=== PATIENT | male | born 1950 | race Caucasian/White ===

== ENCOUNTER 2017-04-14 16:33 | Inpatient (IN) | payer OTHER ==
[~2017-04-14] VITALS: Ht 175.3 cm; Wt 91.7 kg
[~2017-04-14 16:33] MED LIST: ACETAMINOPHEN1 EAC4 PO; AFINITOR10 MG PO; AFINITOR2.5 MG PO; AMLODIPINE BESYL5 MG PO; AMOX TR-K CLV1 EAC4 PO; ASPIR 8181 M1 PO; ASPIRIN81 M2 PO; ATIVAN1 MG PO; ATORVASTATIN CA10 MG PO; AUGMENTIN875 MG PO; BACTRIM,SEPT1 TABLET PO; BLACK CHERRY; BLACK CHERRY EXTRACT PO; BLACK CHERRY PO; BROMELAIN PO; BROMELAINS500 MG PO; CARDIZEM CD120 MG PO; CINNAMON500 MG PO; CIPRO500 MG PO; CO Q-10100 MG PO; EMERGEN C PO; EMERGEN-C; EMERGEN-C PO; FEROSUL325 MG PO; FERROUS SULFAT325 MG PO; FISH OIL 1,0001 EAC7 PO; FISH OIL OMEGA1 EACH PO; FUROSEMIDE20 MG PO; GLUCOPHAGE1000 M1 PO; HYDRALAZINE HCL25 MG PO; HYDROCHLOROTHIA25 MG PO; IRON160 M1 PO; L-GLUTAMINE POWDER PO; LASIX20 MG PO; LASIX40 MG PO; LEVOTHYROXINE88 MCG PO; LEVOXYL88 MCG PO; LISINOPRIL-HCT1 EAC3 PO; LISINOPRIL40 MG PO; LOPERAMIDE2 M1 PO; LOPERAMIDE2 MG PO; LOPRESSOR100 M1 PO; MAG GLYCINATE100 MG PO; MAGNESIUM OXID200 MG PO; MAGNESIUM400 M1 PO; MAGNESIUM400 MG PO; MARINOL5 MG PO; METFORMIN HCL1000 MG PO; METOPROLOL TAR100 MG PO; METOPROLOL TART25 MG PO; NORVASC5 MG PO; OMEGA 3-6-9 CO1 EACH PO; OMEPRAZOLE40 M1 PO; OXYCODONE HCL E10 MG PO; OXYCODONE HCL10 MG PO; OXYCONTIN10 MG PO; PANTOPRAZOLE SO40 MG PO; PERCOCET 5/31 TABLET PO; SENNA8.6 MG PO; SUTENT50 MG PO; SYNTHROID50 MCG PO; TYLENOL EXTRA500 MG PO; TYLENOL PM1 CAPLET PO; VITAMIN B-121000 MCG PO; VITAMIN B-122500 MCG SL; VITAMIN B12-FO1 EACH SL; VITAMIN D-32000 UNI1 PO; VITAMIN D-32000 UNI2 PO; VITAMIN D22000 UNIT PO; VITAMIN D32000 UNI1 PO; XARELTO20 MG PO; ZESTRIL,PRINIVI40 MG PO; ZESTRIL40 MG PO; ZINC30 M1 PO; ZOFRAN4 MG PO; [UNRECOGNIZED DRUG - CODE] PO; [UNRECOGNIZED DRUG - OTHER]; [UNRECOGNIZED DRUG - OTHER] PO; [UNRECOGNIZED DRUG - OTHER] PO
[2017-04-14 17:49] LABS: BASOPHIL (%) 0.5 % (0-1); EOSINOPHIL COUNT 0.2 K/uL (0-0.3); HEMATOCRIT 37.7 % (38.0-50.0); HEMOGLOBIN 11.8 G/DL (12.5-16.6); IMMATURE GRANULOCYTE (%) 0.7 % (0.0-0.7); LYMPHOCYTE (%) 16.5 % (15-42); MCH 29.9 PG (29.0-34.0); MCHC 31.3 G/DL (30.0-36.0); MCV 95.7 FL (86-99); MONOCYTE (%) 9.3 % (3-12); MONOCYTE COUNT 0.6 K/uL (0-0.8); NEUTROPHIL COUNT 4.2 K/uL (1.8-6.4); PLATELET COUNT 168 K/uL (156-360); RBC DIS.WIDTH-CV 14.5 % (11.8-14.6); RBC DIS.WIDTH-SD 50.8 % (39-53); RED BLOOD COUNT 3.94 M/uL (4.00-5.50)
[2017-04-14 18:01] LABS: ALBUMIN 3.6 g/dL (3.2-4.8)
[2017-04-14 18:02] LABS: CHLORIDE 111 mEq/L (99-109); POTASSIUM 5.4 mEq/L (3.7-5.4); SODIUM 138 mEq/L (136-147)
[2017-04-14 18:04] LABS: GLUCOSE 100 mg/dL (70-99); TOTAL PROTEIN 7.1 g/dL (6.4-8.3)
[2017-04-14 18:06] LABS: TOTAL BILIRUBIN 0.2 mg/dL (0.0-1.0)
[2017-04-14 18:08] LABS: ALKALINE PHOSPHATASE 72 IU/L (3-129); CREATININE 1.9 mg/dL (0.6-1.3); GFR ESTIMATE (CALCULATED) 38 mL/min/ (58.99-99999)
[2017-04-14 18:09] LABS: UREA NITROGEN (BUN) 46 mg/dL (9-23)
[2017-04-14 18:10] LABS: AST (GOT) 18 IU/L (2-34)
[2017-04-14 18:11] LABS: ALT (GPT) 17 IU/L (3-49)
[2017-04-14] MEDS ORDERED: SENOKOT S,PE1 TABLET PO (19:32)
[2017-04-14] MEDS ORDERED: ONDANSETRON HCL8 MG PO (19:37)
[2017-04-14] MEDS ORDERED: NAC600 MG PO (19:40)
[2017-04-14] MEDS ORDERED: L-CARNITINE500 M1 PO (19:44)
[2017-04-14] MEDS ORDERED: INLYTA1 MG PO (19:45)
[2017-04-14] MEDS ORDERED: IMODIUM A-D2 M2 PO (19:47)
[2017-04-14] MEDS ORDERED: [UNRECOGNIZED DRUG - OTHER] PO (19:52)
[2017-04-14] MEDS ORDERED: COENZYME Q-10200 MG PO (19:55)
[2017-04-14] MEDS ORDERED: CELEXA10 MG PO (19:55)
[2017-04-14] MEDS ORDERED: CLONIDINE HCL0.2 MG PO (19:56)
[2017-04-14] MEDS ORDERED: [UNRECOGNIZED DRUG - OTHER] PO (19:58)
[2017-04-14 22:39] VITALS: BP 114/66
[2017-04-15 00:33] VITALS: BP 91/50
[2017-04-15 06:45] VITALS: BP 124/71
[2017-04-15 11:20] VITALS: BP 124/72
[2017-04-15 15:17] VITALS: BP 146/74
[2017-04-15 19:03] VITALS: BP 159/77
[2017-04-15 20:39] LABS: APPEARANCE CLEAR ((CLEAR)); BILIRUBIN NEGATIVE; BLOOD NEGATIVE; COLOR STRAW ((YELLOW)); GLUCOSE (STRIP) NEGATIVE; KETONES NEGATIVE; LEUKOCYTES NEGATIVE; NITRITE NEGATIVE; PROTEIN (STRIP) 30; SPECIFIC GRAVITY 1.005 (1.000-1.030); UROBILINOGEN 0.2 MG/DL (0.2-1.0)
[2017-04-15 23:30] VITALS: BP 164/86
[2017-04-16 03:22] VITALS: BP 169/78
[2017-04-16 04:43] LABS: UR CREATININE CONCENTRATION 19.6 MG/DL
[2017-04-16 04:51] LABS: BASOPHIL (%) 0.4 % (0-1); EOSINOPHIL (%) 0.2 % (0-5); HEMATOCRIT 37.3 % (38.0-50.0); HEMOGLOBIN 12.3 G/DL (12.5-16.6); IMMATURE GRANULOCYTE (%) 0.7 % (0.0-0.7); LYMPHOCYTE (%) 6.2 % (15-42); LYMPHOCYTE COUNT 0.6 K/uL (1.0-2.8); MCH 30.4 PG (29.0-34.0); MCV 92.3 FL (86-99); MONOCYTE (%) 7.6 % (3-12); MONOCYTE COUNT 0.7 K/uL (0-0.8); NEUTROPHIL (%) 84.9 % (45-76); NEUTROPHIL COUNT 8.2 K/uL (1.8-6.4); PLATELET COUNT 177 K/uL (156-360); RBC DIS.WIDTH-CV 14.4 % (11.8-14.6); RBC DIS.WIDTH-SD 48.7 % (39-53); RED BLOOD COUNT 4.04 M/uL (4.00-5.50); WHITE BLOOD COUNT 9.7 K/uL (4.1-10.2)
[2017-04-16 04:57] LABS: INTER. NORMALIZED RATIO 1.1
[2017-04-16 05:00] LABS: PTT 29.4 SEC (25-37)
[2017-04-16 05:17] LABS: CHLORIDE 106 MEQ/L (99-109); GFR ESTIMATE (CALCULATED) > 59 mL/min/ (58.99-99999); MAGNESIUM 1.5 mg/dl (1.3-2.7); PHOSPHORUS 1.9 mg/dL (2.5-4.9); POTASSIUM 4.8 MEQ/L (3.7-5.4); SODIUM 136 MEQ/L (136-147); UREA NITROGEN (BUN) 30 mg/dL (9-23)
[2017-04-16 05:22] LABS: ALBUMIN 3.5 G/DL (3.2-4.8); ALKALINE PHOSPHATASE 75 IU/L (3-129); ALT (GPT) 10 IU/L (3-49); AST (GOT) 16 IU/L (2-34); CHLORIDE 108 MEQ/L (99-109); GFR ESTIMATE (CALCULATED) > 59 mL/min/ (58.99-99999); PHOSPHORUS 1.7 mg/dL (2.5-4.9); POTASSIUM 4.7 MEQ/L (3.7-5.4); SODIUM 140 MEQ/L (136-147); TOTAL BILIRUBIN 0.5 MG/DL (0.0-1.0); UREA NITROGEN (BUN) 31 mg/dL (9-23)
[2017-04-16 05:23] LABS: CREATININE 1.3 MG/DL (0.6-1.3); GLUCOSE 197 mg/dL (70-99)
[2017-04-16 05:23] LABS: CREATININE 1.3 MG/DL (0.6-1.3); GLUCOSE 198 mg/dL (70-99)
[2017-04-16 06:02] VITALS: BP 146/79
[2017-04-16 07:10] LABS: AMYLASE 40 IU/L (1-118); LIPASE 5 U/L (1.0-51.0)
[2017-04-16 12:02] VITALS: BP 137/66
[2017-04-16 16:06] VITALS: BP 173/77
[2017-04-17] VITALS (7 sets, daily range): BP systolic 88–174; BP diastolic 59–88
[2017-04-17 06:50] LABS: BASOPHIL (%) 0.4 % (0-1); EOSINOPHIL (%) 0.2 % (0-5); HEMATOCRIT 33.6 % (38.0-50.0); HEMOGLOBIN 10.5 G/DL (12.5-16.6); IMMATURE GRANULOCYTE (%) 0.4 % (0.0-0.7); LYMPHOCYTE (%) 14.7 % (15-42); LYMPHOCYTE COUNT 0.8 K/uL (1.0-2.8); MCH 29.8 PG (29.0-34.0); MCHC 31.3 G/DL (30.0-36.0); MCV 95.5 FL (86-99); MONOCYTE (%) 11.4 % (3-12); MONOCYTE COUNT 0.6 K/uL (0-0.8); NEUTROPHIL (%) 72.9 % (45-76); PLATELET COUNT 140 K/uL (156-360); RBC DIS.WIDTH-CV 14.5 % (11.8-14.6); RBC DIS.WIDTH-SD 50.2 % (39-53); RED BLOOD COUNT 3.52 M/uL (4.00-5.50); WHITE BLOOD COUNT 5.5 K/uL (4.1-10.2)
[2017-04-17 07:36] LABS: ALBUMIN 2.9 G/DL (3.2-4.8); ALKALINE PHOSPHATASE 59 IU/L (3-129); ALT (GPT) 6 IU/L (3-49); AST (GOT) 14 IU/L (2-34); CHLORIDE 112 MEQ/L (99-109); CREATININE 1.3 MG/DL (0.6-1.3); GFR ESTIMATE (CALCULATED) > 59 mL/min/ (58.99-99999); GLUCOSE 157 mg/dL (70-99); POTASSIUM 4.9 MEQ/L (3.7-5.4); SODIUM 142 MEQ/L (136-147); UREA NITROGEN (BUN) 21 mg/dL (9-23)
[2017-04-17 07:37] LABS: AMYLASE 23 IU/L (1-118); TOTAL BILIRUBIN 0.3 MG/DL (0.0-1.0); TOTAL PROTEIN 5.4 G/DL (6.4-8.3)
[2017-04-17 07:57] LABS: LIPASE < 3.0 U/L (1.0-51.0)
[2017-04-18 04:17] VITALS: BP 130/77
[2017-04-18 07:04] VITALS: BP 117/65
[2017-04-18] MEDS ORDERED: PANTOPRAZOLE SO40 MG PO (13:15)
[2017-04-18] MEDS ORDERED: NOVOLOG 10100 UNITS/ SC (13:16)
== END 2017-04-18 15:33 | disposition home or self-care (01) | DRG 602 ==
LOC: EME 16:33 → 5EAST 19:12 → EDOF 19:12 → ENRESERV 19:45 → 5EAST 21:50 → ENPENDDIS 04-18 → 5EAST 04-18 15:33
PROVIDERS: Family Medicine; Hospitalist; Internal Medicine Nephrology
DX: L03.116 Cellulitis of left lower limb (principal); N17.0 Acute kidney failure with tubular necrosis; I13.0 Hypertensive heart and chronic kidney disease with heart failure and stage 1 through stage 4 chronic kidney disease, or unspecified chronic kidney disease; C64.2 Malignant neoplasm of left kidney, except renal pelvis; C79.51 Secondary malignant neoplasm of bone; C78.02 Secondary malignant neoplasm of left lung; C78.01 Secondary malignant neoplasm of right lung; C78.7 Secondary malignant neoplasm of liver and intrahepatic bile duct; I95.9 Hypotension, unspecified; E78.5 Hyperlipidemia, unspecified; E86.0 Dehydration; E11.22 Type 2 diabetes mellitus with diabetic chronic kidney disease; N18.9 Chronic kidney disease, unspecified; K21.9 Gastro-esophageal reflux disease without esophagitis; I50.9 Heart failure, unspecified; I48.0 Paroxysmal atrial fibrillation; N32.3 Diverticulum of bladder; D64.9 Anemia, unspecified; E03.9 Hypothyroidism, unspecified; G89.4 Chronic pain syndrome; I44.0 Atrioventricular block, first degree; Z90.5 Acquired absence of kidney; Z98.1 Arthrodesis status; Z90.49 Acquired absence of other specified parts of digestive tract; Z87.891 Personal history of nicotine dependence; Z87.442 Personal history of urinary calculi; Z79.84 Long term (current) use of oral hypoglycemic drugs; Z80.9 Family history of malignant neoplasm, unspecified; Z83.79 Family history of other diseases of the digestive system
CPT/HCPCS: 71046; 74176; 76770; 80048; 80053; 80069; 80076; 81003; 82150; 82570; 82948; 83605; 83690; 83735; 83880; 84100; 84156; 85025; 85027; 85610; 85730; 86850; 86900; 86901; 87040; 93005; 93971; 99281; 99285; C9113; J0690; J1170; J1626; J2270; J2405; J2765; J7040; J7042; J7120; S0028; S0030

== ENCOUNTER 2017-06-02 15:15 | Emergency (ER) | payer OTHER ==
[~2017-06-02] VITALS: Ht 175.3 cm; Wt 95.4 kg
[~2017-06-02 15:15] MED LIST changes: +CELEXA10 MG PO; +CLONIDINE HCL0.2 MG PO; +COENZYME Q-10200 MG PO; +IMODIUM A-D2 M2 PO; +INLYTA1 MG PO; +L-CARNITINE500 M1 PO; +NAC600 MG PO; +NOVOLOG 10100 UNITS/ SC; +ONDANSETRON HCL8 MG PO; -OXYCODONE HCL E10 MG PO; +SENOKOT S,PE1 TABLET PO; +[UNRECOGNIZED DRUG - OTHER] PO
[2017-06-02 16:21] LABS: HEMATOCRIT 34.4 % (38.0-50.0); HEMOGLOBIN 10.8 G/DL (12.5-16.6); MCH 29.8 PG (29.0-34.0); MCHC 31.4 G/DL (30.0-36.0); MCV 94.8 FL (86-99); PLATELET COUNT 177 K/uL (156-360); RBC DIS.WIDTH-CV 14.4 % (11.8-14.6); RBC DIS.WIDTH-SD 49.6 % (39-53); RED BLOOD COUNT 3.63 M/uL (4.00-5.50); WHITE BLOOD COUNT 6.3 K/uL (4.1-10.2)
[2017-06-02 16:32] LABS: CHLORIDE 112 mEq/L (99-109); POTASSIUM 5.4 mEq/L (3.7-5.4); SODIUM 138 mEq/L (136-147)
[2017-06-02 16:33] LABS: GLUCOSE 140 mg/dL (70-99)
[2017-06-02 16:37] LABS: CREATININE 1.6 mg/dL (0.6-1.3); GFR ESTIMATE (CALCULATED) 46 mL/min/ (58.99-99999)
[2017-06-02 16:38] LABS: UREA NITROGEN (BUN) 29 mg/dL (9-23)
[2017-06-02 16:43] LABS: TROP-I INTERPRETATION NEGATIVE; TROPONIN-I 0.01 ng/mL (0.0-0.30)
[2017-06-02 17:47] LABS: APPEARANCE CLEAR ((CLEAR)); BILIRUBIN NEGATIVE; BLOOD NEGATIVE; COLOR YELLOW ((YELLOW)); GLUCOSE (STRIP) NEGATIVE; KETONES NEGATIVE; LEUKOCYTES NEGATIVE; NITRITE NEGATIVE; PROTEIN (STRIP) 100; SPECIFIC GRAVITY 1.011 (1.000-1.030); UROBILINOGEN 0.2 MG/DL (0.2-1.0)
[2017-06-02 17:54] LABS: BACTERIA NONE SEEN /HPF; EPITHELIAL CELLS NONE SEEN /HPF; HYALINE CASTS 0-5 /LPF; MUCUS NONE SEEN /LPF; RED BLOOD CELLS 0-5 /HPF (0-5); UCUL ADDED? NO; WHITE BLOOD CELLS 0-5 /HPF (0-5)
[2017-06-02] MEDS ORDERED: SSD25GM TP (19:10)
[2017-06-02] MEDS ORDERED: METFORMIN HCL500 MG PO (19:10)
[2017-06-02] MEDS ORDERED: CITALOPRAM HBR10 MG PO (19:11)
[2017-06-02] MEDS ORDERED: MIRTAZAPINE15 MG PO (19:12)
[2017-06-02] MEDS ORDERED: APRESOLINE100 MG PO (19:13)
[2017-06-02] MEDS ORDERED: AMLODIPINE BESY10 MG PO (19:14)
[2017-06-02] MEDS ORDERED: FUROSEMIDE20 MG PO (19:15)
[2017-06-02] MEDS ORDERED: CABOMETYX60 MG PO (19:16)
[2017-06-02] MEDS ORDERED: PROTONIX40 MG PO (19:27)
[2017-06-02] MEDS ORDERED: OXYCODONE HCL E10 MG PO (19:32)
[2017-06-02 20:42] LABS: CHLORIDE 115 mEq/L (99-109); POTASSIUM 5.4 mEq/L (3.7-5.4); SODIUM 141 mEq/L (136-147)
[2017-06-02 20:47] LABS: CREATININE 1.5 mg/dL (0.6-1.3); GFR ESTIMATE (CALCULATED) 50 mL/min/ (58.99-99999)
[2017-06-02 20:48] LABS: UREA NITROGEN (BUN) 25 mg/dL (9-23)
[2017-06-02 20:50] LABS: GLUCOSE 101 mg/dL (70-99)
[2017-06-02 21:21] VITALS: BP 160/87
== END 2017-06-02 22:59 | disposition home or self-care (01) ==
LOC: EME 15:15
PROVIDERS: Physician Assistant
DX: R60.0 Localized edema (principal); S90.822A Blister (nonthermal), left foot, initial encounter; S90.821A Blister (nonthermal), right foot, initial encounter; R94.31 Abnormal electrocardiogram [ECG] [EKG]; E87.5 Hyperkalemia; C64.9 Malignant neoplasm of unspecified kidney, except renal pelvis; Z87.891 Personal history of nicotine dependence; C79.51 Secondary malignant neoplasm of bone; E11.9 Type 2 diabetes mellitus without complications; C78.7 Secondary malignant neoplasm of liver and intrahepatic bile duct; C78.01 Secondary malignant neoplasm of right lung; C78.02 Secondary malignant neoplasm of left lung; I10 Essential (primary) hypertension; E78.5 Hyperlipidemia, unspecified; K21.9 Gastro-esophageal reflux disease without esophagitis; M10.9 Gout, unspecified; Z79.84 Long term (current) use of oral hypoglycemic drugs; Z92.21 Personal history of antineoplastic chemotherapy; Z88.8 Allergy status to other drugs, medicaments and biological substances
CPT/HCPCS: 71046; 80048; 80048 91; 81003; 83880; 84484; 85027; 93005; 93970; 99281; 99285; J0610; J7030; J7050

== ENCOUNTER 2017-08-28 14:16 | Inpatient (IN) | payer OTHER ==
[~2017-08-28] VITALS: Ht 175.3 cm; Wt 90.8 kg
[~2017-08-28 14:16] MED LIST changes: +AMLODIPINE BESY10 MG PO; +APRESOLINE100 MG PO; +CABOMETYX60 MG PO; +CITALOPRAM HBR10 MG PO; +LEVOXYL100 MCG PO; -LEVOXYL88 MCG PO; +MIRTAZAPINE15 MG PO; +OXYCODONE HCL E10 MG PO; +PROTONIX40 MG PO; +SSD25GM TP
[2017-08-28 18:01] LABS: HEMATOCRIT 37.3 % (38.0-50.0); HEMOGLOBIN 12.1 G/DL (12.5-16.6); MCH 32.2 PG (29.0-34.0); MCHC 32.4 G/DL (30.0-36.0); MCV 99.2 FL (86-99); RBC DIS.WIDTH-CV 16.5 % (11.8-14.6); RBC DIS.WIDTH-SD 60.8 % (39-53); RED BLOOD COUNT 3.76 M/uL (4.00-5.50); WHITE BLOOD COUNT 7.6 K/uL (4.1-10.2)
[2017-08-28 18:05] LABS: PLATELET COUNT 275 K/uL (156-360)
[2017-08-28 18:10] LABS: INTER. NORMALIZED RATIO 1.1
[2017-08-28 18:13] LABS: PTT 29.2 SEC (25-37)
[2017-08-28 18:14] LABS: CHLORIDE 110 mEq/L (99-109); POTASSIUM 5.5 mEq/L (3.7-5.4); SODIUM 143 mEq/L (136-147)
[2017-08-28 18:16] LABS: GLUCOSE 77 mg/dL (70-99)
[2017-08-28 18:20] LABS: CREATININE 1.5 mg/dL (0.6-1.3); GFR ESTIMATE (CALCULATED) 50 mL/min/ (58.99-99999)
[2017-08-28 18:21] LABS: UREA NITROGEN (BUN) 24 mg/dL (9-23)
[2017-08-28 19:30] VITALS: BP 180/90
[2017-08-28 23:23] VITALS: BP 179/94
[2017-08-29] VITALS (8 sets, daily range): BP systolic 90–129; BP diastolic 52–77
[2017-08-29 04:09] LABS: INTER. NORMALIZED RATIO 1.2
[2017-08-30] VITALS (7 sets, daily range): BP systolic 94–113; BP diastolic 52–63
[2017-08-30 05:57] LABS: INTER. NORMALIZED RATIO 1.3
[2017-08-30 19:39] LABS: HEMOGLOBIN 9.1 G/DL (12.5-16.6); MCH 31.7 PG (29.0-34.0); MCHC 31.4 G/DL (30.0-36.0); PLATELET COUNT 237 K/uL (156-360); RBC DIS.WIDTH-SD 59.9 % (39-53); RED BLOOD COUNT 2.87 M/uL (4.00-5.50); WHITE BLOOD COUNT 5.6 K/uL (4.1-10.2)
[2017-08-30 19:43] LABS: CHLORIDE 109 MEQ/L (99-109); POTASSIUM 5.2 MEQ/L (3.7-5.4)
[2017-08-30 19:48] LABS: UREA NITROGEN (BUN) 34 mg/dL (9-23)
[2017-08-30 19:49] LABS: GFR ESTIMATE (CALCULATED) 36 mL/min/ (58.99-99999); GLUCOSE 128 mg/dL (70-99); SODIUM 135 MEQ/L (136-147)
[2017-08-31 03:35] VITALS: BP 101/60
[2017-08-31 07:14] LABS: INTER. NORMALIZED RATIO 2.1
[2017-08-31 07:17] LABS: PTT 99.4 SEC (25-37)
[2017-08-31 08:38] VITALS: BP 112/58
[2017-08-31] MEDS ORDERED: CABOMETYX40 MG PO (08:49)
[2017-08-31 12:27] VITALS: BP 111/47
[2017-08-31 16:59] VITALS: BP 108/57
[2017-08-31 21:18] VITALS: BP 115/63
[2017-08-31 23:46] VITALS: BP 102/62
[2017-09-01 04:15] VITALS: BP 122/69
[2017-09-01 06:47] LABS: PTT 89.2 SEC (25-37)
[2017-09-01 07:01] LABS: INTER. NORMALIZED RATIO 4.4
[2017-09-01 07:45] VITALS: BP 131/69
[2017-09-01 11:00] VITALS: BP 114/65
[2017-09-01 15:00] VITALS: BP 103/63
[2017-09-01 19:00] VITALS: BP 115/61
[2017-09-02 00:05] VITALS: BP 123/68
[2017-09-02 03:33] VITALS: BP 109/65
[2017-09-02 06:47] LABS: INTER. NORMALIZED RATIO 4.4
[2017-09-02 07:45] VITALS: BP 115/68
[2017-09-02 09:05] LABS: HEMOGLOBIN A1c (GLYCOHEMOGLOB) 5.8 % (Below 5.7)
[2017-09-02 15:45] VITALS: BP 109/64
[2017-09-02 21:05] VITALS: BP 130/61
[2017-09-02 23:26] VITALS: BP 103/55
[2017-09-03 06:44] LABS: INTER. NORMALIZED RATIO 3.8
[2017-09-03 07:27] VITALS: BP 99/56
[2017-09-03 14:55] VITALS: BP 99/57
[2017-09-03 16:46] LABS: HEMATOCRIT 30.5 % (38.0-50.0); HEMOGLOBIN 9.4 G/DL (12.5-16.6); MCH 31.5 PG (29.0-34.0); MCHC 30.8 G/DL (30.0-36.0); MCV 102.3 FL (86-99); RBC DIS.WIDTH-SD 59.3 % (39-53); RED BLOOD COUNT 2.98 M/uL (4.00-5.50); WHITE BLOOD COUNT 5.5 K/uL (4.1-10.2)
[2017-09-03 16:47] LABS: BASOPHIL (%) 0.5 % (0-1); EOSINOPHIL (%) 4.4 % (0-5); EOSINOPHIL COUNT 0.2 K/uL (0-0.3); IMMATURE GRANULOCYTE (%) 0.5 % (0.0-0.7); LYMPHOCYTE (%) 15.1 % (15-42); LYMPHOCYTE COUNT 0.8 K/uL (1.0-2.8); MONOCYTE (%) 7.5 % (3-12); MONOCYTE COUNT 0.4 K/uL (0-0.8); PLATELET COUNT 249 K/uL (156-360); RBC DIS.WIDTH-CV 15.9 % (11.8-14.6)
== END 2017-09-03 18:12 | disposition home or self-care (01) | DRG 253 ==
LOC: EME 14:16 → EDOF 18:41 → 5EAST 18:41 → ENRESERV 18:51 → 5EAST 19:41
PROVIDERS: Family Medicine; Physician Assistant
PROC: 06H03DZ Insertion of Intraluminal Device into Inferior Vena Cava, Percutaneous Approach (ICD-10-PCS; principal; 2017-09-01)
DX: I82.402 Acute embolism and thrombosis of unspecified deep veins of left lower extremity (principal); I10 Essential (primary) hypertension; E78.5 Hyperlipidemia, unspecified; C78.7 Secondary malignant neoplasm of liver and intrahepatic bile duct; K21.9 Gastro-esophageal reflux disease without esophagitis; I48.91 Unspecified atrial fibrillation; G89.4 Chronic pain syndrome; F32.9 Major depressive disorder, single episode, unspecified; F41.9 Anxiety disorder, unspecified; E11.9 Type 2 diabetes mellitus without complications; E03.9 Hypothyroidism, unspecified; C78.00 Secondary malignant neoplasm of unspecified lung; C79.51 Secondary malignant neoplasm of bone; C64.9 Malignant neoplasm of unspecified kidney, except renal pelvis; M10.9 Gout, unspecified; D68.69 Other thrombophilia; Z90.5 Acquired absence of kidney; Z79.84 Long term (current) use of oral hypoglycemic drugs; Z87.891 Personal history of nicotine dependence
CPT/HCPCS: 71045; 80048; 82948; 83036; 85025; 85027; 85610; 85730; 93971; 99281; 99284; C1751; C1769; J0131; J0690; J1644; J2250; J3010